=== PATIENT | male | born 1990 | race African-American/Black ===

== ENCOUNTER 2023-06-18 04:47 | Emergency (ER) | payer OTHER ==
[~2023-06-18] VITALS: Ht 185.4 cm; Wt 102.1 kg
[2023-06-18] MEDS ORDERED: PRED20TA PO (05:09)
[2023-06-18] MEDS ORDERED: DIPH-435 PO (05:09)
[2023-06-18] MEDS ORDERED: AMOX500C PO (05:09)
[2023-06-18] MEDS ORDERED: MUCI600T31 PO (08:42)
[2023-06-18] MEDS ORDERED: OXYM15SP2 (08:42)
[2023-06-18 08:52] VITALS: BP 149/95; TEMP 98.6; O2SAT 99
== END 2023-06-18 09:02 | disposition home or self-care (01) ==
LOC: EDBD 04:47 → M ED 04:47
DX: J06.9 Acute upper respiratory infection, unspecified (principal); B97.4 Respiratory syncytial virus as the cause of diseases classified elsewhere; H65.23 Chronic serous otitis media, bilateral; Z79.2 Long term (current) use of antibiotics; Z79.52 Long term (current) use of systemic steroids; Z79.899 Other long term (current) drug therapy